=== PATIENT | female | born 2000 | race Caucasian/White ===

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

== ENCOUNTER 2018-01-02 11:39 | Emergency (ER) | payer BC ==
--- NOTE | 2018-01-02 12:26 | EDM.PDOC ---
ED HPI GENERAL MEDICAL PROBLEM - General Chief Complaint: Abdominal Pain Stated Complaint: ABDOMINAL PAIN,NAUSEA Time Seen by Provider: 01/02/18 12:26 Source of Information: Reports: Patient History Limitations: Reports: No Limitations - History of Present Illness INITIAL COMMENTS - FREE TEXT/NARRATIVE: Pt arrived with acute lower abdomanal pain. She has not had a high fever Onset: Gradual, Other (over the past 2 days. ) Duration: Hour(s): Location: Reports: Abdomen Associated Symptoms: Reports: No Other Symptoms, Nausea/Vomiting, Other (pt had an appendectomy early December. Her ovary was involved with the appendix. ) Middle Abdominal Pain Score (Numeric/FACES): 6 - Related Data Allergies Allergy/AdvReac Type Severity Reaction Status Date / Time No Known Allergies Allergy Verified 12/19/17 20:18 Home Meds: Home Meds Acetaminophen/HYDROcodone [[place] 325-5 MG] 1 - 2 tab PO Q4H PRN #30 tablet 12/21 [Rx] Past Medical History HEENT History: Reports: Impaired Vision Genitourinary History: Reports: UTI, Recurrent Other OB/BYN History: LMP november 24 - Infectious Disease History Infectious Disease History: Reports: Chicken Pox - Past Surgical History GI Surgical History: Reports: Appendectomy Social & Family History - Tobacco Use Smoking Status *Q: Never Smoker - Caffeine Use Caffeine Use: Reports: None - Recreational Drug Use Recreational Drug Use: No ED ROS GENERAL - Review of Systems Review Of Systems: See Below Constitutional: Reports: Weakness, Decreased Appetite, Other (pt has increased pain when she eats. ) HEENT: Reports: No Symptoms Respiratory: Reports: No Symptoms Cardiovascular: Reports: No Symptoms Endocrine: Reports: No Symptoms GI/Abdominal: Reports: Abdominal Pain, Nausea, Other (pt started to have increased abdomanal pain on he about the time she got. ) ED EXAM, GI/ABD - Physical Exam Exam: See Below Text/Narrative:: Pt arrived with a history of an appy 10 days ago. She was doing well until the and she developed alot more pain She has been having a stool daily wich is loose. She did get her period and she is bleeding very heavy. Her hcg is neg. . She is not vomiting but she can eat very little because the pain gets worse. Exam Limited By: No Limitations General Appearance: Alert, Anxious, Other (pupils equal and reactive. ) Ears: Normal TMs Nose: Normal Inspection Throat/Mouth: Normal Inspection Head: Atraumatic Neck: Normal Inspection Respiratory/Chest: No Respiratory Distress Cardiovascular: Regular Rate, Rhythm GI/Abdominal Exam: Guarding, Tender, Other (mildly distented. ) (Female) Exam: Deferred Rectal (Female) Exam: Deferred Back Exam: Normal Inspection Extremities: Normal Inspection Neurological: Alert, Oriented, Normal Cognition Psychiatric: Normal Affect Course - Vital Signs Last Recorded V/S: Last Vital Signs Temp 37.0 C 01/02/18 14:23 Pulse 85 01/02/18 14:23 Resp 16 01/02/18 14:23 BP 119/72 01/02/18 14:23 Pulse Ox 99 01/02/18 14:23 - Orders/Labs/Meds Orders: Active Orders 24 hr Category Date Time Status CLOSTRIDIUM DIFFICILE BY PCR [RM] Stat Lab 01/02/18 15:43 Ordered CULTURE URINE [] Stat Lab 01/02/18 14:00 Received HCG QUALITATIVE,URINE [URCHEM] Stat Lab 01/02/18 14:05 Ordered UA W/MICROSCOPIC [URIN] Urgent Lab 01/02/18 13:59 Ordered Iopamidol [Isovue-300 (61%)] Med 01/02/18 12:50 Active 85 ml IV . DIRECTED PRN Sodium Chloride 0.9% [Normal Saline] 1,000 ml Med 01/02/18 12:30 Active IV ASDIRECTED Sodium Chloride 0.9% [Normal Saline] 70 ml Med 01/02/18 13:00 Active IV ASDIRECTED Medication Orders Sodium Chloride (Normal Saline) 1,000 mls @ 999 mls/hr IV ASDIRECTED [facility] Last Admin: 01/02/18 12:55 Dose: 999 mls/hr Sodium Chloride (Normal Saline) 70 mls @ 3 mls/sec IV ASDIRECTED [facility] Last Admin: 01/02/18 13:19 Dose: 3 mls/sec Iopamidol (Isovue-300 (61%)) 85 ml IV . DIRECTED PRN PRN Reason: RADIOLOGY EXAM Stop: 01/03/18 12:51 Last Admin: 01/02/18 13:19 Dose: 85 ml Labs: Laboratory Tests 01/02/18 01/02/18 01/02/18 Range/Units 12:40 12:40 12:40 WBC 8.9 (4.5-11.0) K/uL RBC 4.28 (3.30-5.50) M/uL Hgb 12.6 (12.0-15.0) g/dL Hct 37.5 (36.0-48.0) % MCV 88 (80-98) fL MCH 29 (27-31) pg MCHC 34 (32-36) % Plt Count 245 (150-400) K/uL Neut % (Auto) 65 (36-66) % Lymph % (Auto) 16 L (24-44) % [place] % (Auto) 11 H (2-6) % Eos % (Auto) 8 H (2-4) % Baso % (Auto) 0 (0-1) % Sodium 141 (140-148) mmol/L Potassium 4.4 (3.6-5.2) mmol/L Chloride 104 (100-108) mmol/L Carbon Dioxide 28 (21-32) mmol/L Anion Gap 9.0 (5.0-14.0) mmol/L BUN 8 D (7-18) mg/dL Creatinine 0.7 (0.6-1.0) mg/dL Est Cr Clr Drug Dosing 106.93 mL/min Estimated GFR (MDRD) > 60 (>60) Glucose 93 (74-106) mg/dL Calcium 9.0 (8.5-10.1) mg/dL Total Bilirubin 0.5 (0.2-1.0) mg/dL AST 25 (15-37) U/L ALT 47 (12-78) U/L Alkaline Phosphatase 108 (46-116) U/L C-Reactive Protein 3.73 H (0.0-0.3) mg/dL Total Protein 7.3 (6.4-8.2) g/dL Albumin 3.4 (3.4-5.0) g/dL Globulin 3.9 H (2.3-3.5) g/dL Albumin/Globulin Ratio 0.9 L (1.2-2.2) Urine Color Urine Appearance Urine pH (4.5-8.0) Ur Specific [place] (1.008-1.030) Urine Protein (NEGATIVE) mg/dL Urine Glucose (UA) (NEGATIVE) mg/dL Urine Ketones (NEGATIVE) mg/dL Urine Occult Blood (NEGATIVE) Urine Nitrite (NEGATIVE) Urine Bilirubin (NEGATIVE) Urine Urobilinogen (NORMAL) mg/dL Ur Leukocyte Esterase (NEGATIVE) Urine RBC (0-5) Urine WBC (0-5) Ur Epithelial Cells Amorphous Sediment Urine Bacteria Urine Mucus Urine HCG, Qual 01/02/18 01/02/18 Range/Units 13:59 14:05 WBC (4.5-11.0) K/uL RBC (3.30-5.50) M/uL Hgb (12.0-15.0) g/dL Hct (36.0-48.0) % MCV (80-98) fL MCH (27-31) pg MCHC (32-36) % Plt Count (150-400) K/uL Neut % (Auto) (36-66) % Lymph % (Auto) (24-44) % [place] % (Auto) (2-6) % Eos % (Auto) (2-4) % Baso % (Auto) (0-1) % Sodium (140-148) mmol/L Potassium (3.6-5.2) mmol/L Chloride (100-108) mmol/L Carbon Dioxide (21-32) mmol/L Anion Gap (5.0-14.0) mmol/L BUN (7-18) mg/dL Creatinine (0.6-1.0) mg/dL Est Cr Clr Drug Dosing mL/min Estimated GFR (MDRD) (>60) Glucose (74-106) mg/dL Calcium (8.5-10.1) mg/dL Total Bilirubin (0.2-1.0) mg/dL AST (15-37) U/L ALT (12-78) U/L Alkaline Phosphatase (46-116) U/L C-Reactive Protein (0.0-0.3) mg/dL Total Protein (6.4-8.2) g/dL Albumin (3.4-5.0) g/dL Globulin (2.3-3.5) g/dL Albumin/Globulin Ratio (1.2-2.2) Urine Color Red Urine Appearance Cloudy Urine pH 5.0 (4.5-8.0) Ur Specific [place] 1.015 (1.008-1.030) Urine Protein 30 H (NEGATIVE) mg/dL Urine Glucose (UA) Normal (NEGATIVE) mg/dL Urine Ketones Negative (NEGATIVE) mg/dL Urine Occult Blood Large (NEGATIVE) Urine Nitrite Negative (NEGATIVE) Urine Bilirubin Negative (NEGATIVE) Urine Urobilinogen Normal (NORMAL) mg/dL Ur Leukocyte Esterase Small (NEGATIVE) Urine RBC Packed H (0-5) Urine WBC 10-20 H (0-5) Ur Epithelial Cells Few Amorphous Sediment Not seen Urine Bacteria Few Urine Mucus Not seen Urine HCG, Qual Negative Meds: Medications Generic Name Dose Route Start Last Admin Trade Name Amy PRN Reason Stop Dose Admin Sodium Chloride 1,000 mls @ 999 mls/hr 01/02/18 12:30 01/02/18 12:55 Normal Saline IV 999 mls/hr ASDIRECTED [facility] Administration Sodium Chloride 70 mls @ 3 mls/sec 01/02/18 13:00 01/02/18 13:19 Normal Saline IV 3 mls/sec ASDIRECTED [facility] Administration Iopamidol 85 ml 01/02/18 12:50 01/02/18 13:19 Isovue-300 (61%) IV 01/03/18 12:51 85 ml . DIRECTED PRN Administration RADIOLOGY EXAM Discontinued Medications Generic Name Dose Route Start Last Admin Trade Name Amy PRN Reason Stop Dose Admin Hydromorphone HCl 0.5 mg 01/02/18 12:30 01/02/18 12:55 Dilaudid IVPUSH 01/02/18 12:31 0.5 mg ONETIME ONE Administration Magnesium Citrate 296 ml 01/02/18 13:55 01/02/18 14:06 Citrate Of Magnesia PO 01/02/18 13:56 296 ml ONETIME ONE Administration Ondansetron HCl 4 mg 01/02/18 12:30 01/02/18 12:55 Zofran IVPUSH 01/02/18 12:31 4 mg ONETIME ONE Administration Oxycodone/Acetaminophen 1 tab 01/02/18 14:13 01/02/18 14:32 Percocet 325-5 Mg PO 01/02/18 14:14 1 tab ONETIME ONE Administration Sodium Chloride 10 ml 01/02/18 12:50 01/02/18 14:33 Normal Saline FLUSH 01/02/18 12:51 10 ml ONETIME ONE Administration - Re-Assessments/Exams Free Text/Narrative Re-Assessment/Exam: 01/02/18 15:44 cat scan showed a fair amount of stool, no acute findings. Rt ovary was generous but no large cyst. 01/02/18 16:18 Dr England did consult on the pt Departure - Departure Time of Disposition: 16:18 Disposition: Home, Self-Care 01 Condition: Fair Clinical Impression: Abdominal pain, Hx of appendectomy, Heavy menstrual period - Discharge Information Referrals: Emma Damon CNM [Primary Care Provider] - Forms: ED Department Discharge Care Plan Goals: push fluids, pepcid 20mg daily for 10 days, send a sterile cup home with the pt to bring a stool back for clost diff, keep appt with Dr England on Sunday. Motrin 600mg tid, norco 5/325 q6h prn for pain # 10 - My Orders Last 24 Hours: My Active Orders 01/02/18 12:30 Sodium Chloride 0.9% [Normal Saline] 1,000 ml IV ASDIRECTED 01/02/18 12:50 Iopamidol [Isovue-300 (61%)] 85 ml IV . DIRECTED PRN 01/02/18 13:00 Sodium Chloride 0.9% [Normal Saline] 70 ml IV ASDIRECTED 01/02/18 13:59 UA W/MICROSCOPIC [URIN] Urgent 01/02/18 14:00 CULTURE URINE [RM] Stat 01/02/18 14:05 HCG QUALITATIVE,URINE [URCHEM] Stat 01/02/18 15:43 CLOSTRIDIUM DIFFICILE BY PCR [] Stat - Assessment/Plan Last 24 Hours: My Active Orders 01/02/18 12:30 Sodium Chloride 0.9% [Normal Saline] 1,000 ml IV ASDIRECTED 01/02/18 12:50 Iopamidol [Isovue-300 (61%)] 85 ml IV . DIRECTED PRN 01/02/18 13:00 Sodium Chloride 0.9% [Normal Saline] 70 ml IV ASDIRECTED 01/02/18 13:59 UA W/MICROSCOPIC [URIN] Urgent 01/02/18 14:00 CULTURE URINE [RM] Stat 01/02/18 14:05 HCG QUALITATIVE,URINE [URCHEM] Stat 01/02/18 15:43 CLOSTRIDIUM DIFFICILE BY PCR [] Stat
[2018-01-02] MEDS ORDERED: HYDROmorphone 0.5 MG/0.5 ML Syringe IVPUSH ONE (12:30)
[2018-01-02] MEDS ORDERED: Sodium Chloride 0.9% 1,000 ML IV SCH (12:30)
[2018-01-02] MEDS ORDERED: Ondansetron 4 MG/2 ML SDV IVPUSH ONE (12:30)
[2018-01-02] MEDS ORDERED: Iopamidol 612 MG/ML 100 ML Bottle IV PRN (12:50)
[2018-01-02] MEDS ORDERED: Sodium Chloride 0.9% 10 ML SDV FLUSH ONE (12:50)
--- NOTE | 2018-01-02 13:39 | CT ---
Abdomen pelvis CT. History: Acute abdominal pain. Technique: IV contrast was administered followed by axial imaging from the lung bases extending thro ugh the abdomen and pelvis. Coronal images were reconstructed. Total DLP: 372. Comparison: 2 weeks prior Findings: Since the prior study the patient has had a appendectomy. There are surgical clips at the b ase of the cecum. There is no evidence for abscess. There is no free air or free fluid. There is no l arge or small bowel distention. There is moderate stool retention within the colon. There is no wall thickening or inflammation. The ovaries and adnexal structures are unremarkable. A 1.6 cm follicle of the right ovary on the prior study has resolved. Limited evaluation of lower lung patrick demonstrates no abnormalities. The gallbladder, pancreas, and spleen are stable. The kidneys demonstrate symmetric excretion of contrast. The skeletal structures are unremarkable. Impression: 1. Interval appendectomy. There are no postoperative complications. There is no evidence of abscess. 2. There are no acute findings of the abdomen or pelvis. 3. Moderate stool retention within the colon.
[2018-01-02] MEDS ORDERED: Magnesium Citrate Solution 296 ML Bottle PO ONE (13:55)
[2018-01-02] MEDS ORDERED: Acetaminophen/oxyCODONE 325-5 MG Tab PO ONE (14:13)
--- NOTE | 2018-01-02 16:07 | PCM.CONS ---
H&P History of Present Illness - General Date of Service: 01/02/18 Admit Problem/Dx: Abdominal pain Source of Information: Patient, Old Records, Provider History Limitations: Reports: No Limitations - History of Present Illness Initial Comments - Free Text/Narative: This 17 year old white female is s/p a laparoscopic appendectomy on December 19, 2017 for pathologically confirmed early acute appendicitis. It appeared that she had a resolving right ovarian cyst also. There was no evidence of a Meckel's diverticulum. She was a little slow recovering from surgery, but went home eating well. She started her period on December 30, 2017 and at about the same time noted onset of abdominal pain. The pain seems worse with eating and BM's. It became bad enough that she presented to the ER today. She has felt hot, but no chills. She for years has had abdominal pain with her periods. Years ago she says her mother thought she had endometriosis. We did not note any evidence of that at the time of surgery, but endometriosis can be subtle. Onset of Symptoms: Reports: Other (december 30, 2017--similar to the past but worse now.) Duration of Symptoms: Reports: Day(s): Location: Reports: Abdomen Middle Abdominal Pain Score (Numeric/FACES): 6 - Related Data Allergies/Adverse Reactions: Allergies Allergy/AdvReac Type Severity Reaction Status Date / Time No Known Allergies Allergy Verified 12/19/17 20:18 Home Medications: Home Meds Acetaminophen/HYDROcodone [[place] 325-5 MG] 1 - 2 tab PO Q4H PRN #30 tablet 12/21 [Rx] Past Medical History HEENT History: Reports: Impaired Vision Genitourinary History: Reports: UTI, Recurrent Other OB/BYN History: LMP november 24 - Infectious Disease History Infectious Disease History: Reports: Chicken Pox - Past Surgical History GI Surgical History: Reports: Appendectomy Social & Family History - Tobacco Use Smoking Status *Q: Never Smoker - Caffeine Use Caffeine Use: Reports: None - Recreational Drug Use Recreational Drug Use: No H&P Review of Systems - Review of Systems: Review Of Systems: See Below General: Reports: No Symptoms, Other (Abdominal pain.) HEENT: Reports: No Symptoms Pulmonary: Reports: No Symptoms Cardiovascular: Reports: No Symptoms Gastrointestinal: Reports: Abdominal Pain Genitourinary: Reports: Other (Having her period. ) Musculoskeletal: Reports: No Symptoms Psychiatric: Reports: No Symptoms Neurological: Reports: No Symptoms Hematologic/Lymphatic: Reports: No Symptoms Immunologic: Reports: No Symptoms Exam - Exam Exam: See Below - Vital Signs Vital Signs: Last Vital Signs Temp 98.6 F 01/02/18 14:23 Pulse 85 01/02/18 14:23 Resp 16 01/02/18 14:23 BP 119/72 01/02/18 14:23 Pulse Ox 99 01/02/18 14:23 Weight: 124 lb 5.451 oz - Exam General: Alert, Oriented, Cooperative, Other (Smiling and looks well. ) Lungs: Clear to Auscultation, Normal Respiratory Effort Cardiovascular: Regular Rate, Regular Rhythm GI/Abdominal Exam: Normal Bowel Sounds, Tender (Diffusely tender with some peritoneal irritation signs. ) Back Exam: Normal Inspection, Full Range of Motion Extremities: Normal Inspection Skin: Warm, Dry, Intact Neuro Extensive - Mental Status: Alert, Oriented x3, Normal Mood/Affect, Normal Cognition Psychiatric: Alert, Normal Affect, Normal Mood - Patient Data Lab Results Last 24 hrs: Laboratory Results - last 24 hr 01/02/18 01/02/18 01/02/18 Range/Units 12:40 12:40 12:40 WBC 8.9 (4.5-11.0) K/uL RBC 4.28 (3.30-5.50) M/uL Hgb 12.6 (12.0-15.0) g/dL Hct 37.5 (36.0-48.0) % MCV 88 (80-98) fL MCH 29 (27-31) pg MCHC 34 (32-36) % Plt Count 245 (150-400) K/uL Neut % (Auto) 65 (36-66) % Lymph % (Auto) 16 L (24-44) % [place] % (Auto) 11 H (2-6) % Eos % (Auto) 8 H (2-4) % Baso % (Auto) 0 (0-1) % Sodium 141 (140-148) mmol/L Potassium 4.4 (3.6-5.2) mmol/L Chloride 104 (100-108) mmol/L Carbon Dioxide 28 (21-32) mmol/L Anion Gap 9.0 (5.0-14.0) mmol/L BUN 8 D (7-18) mg/dL Creatinine 0.7 (0.6-1.0) mg/dL Est Cr Clr Drug Dosing 106.93 mL/min Estimated GFR (MDRD) > 60 (>60) Glucose 93 (74-106) mg/dL Calcium 9.0 (8.5-10.1) mg/dL Total Bilirubin 0.5 (0.2-1.0) mg/dL AST 25 (15-37) U/L ALT 47 (12-78) U/L Alkaline Phosphatase 108 (46-116) U/L C-Reactive Protein 3.73 H (0.0-0.3) mg/dL Total Protein 7.3 (6.4-8.2) g/dL Albumin 3.4 (3.4-5.0) g/dL Globulin 3.9 H (2.3-3.5) g/dL Albumin/Globulin Ratio 0.9 L (1.2-2.2) Urine Color Urine Appearance Urine pH (4.5-8.0) Ur Specific [place] (1.008-1.030) Urine Protein (NEGATIVE) mg/dL Urine Glucose (UA) (NEGATIVE) mg/dL Urine Ketones (NEGATIVE) mg/dL Urine Occult Blood (NEGATIVE) Urine Nitrite (NEGATIVE) Urine Bilirubin (NEGATIVE) Urine Urobilinogen (NORMAL) mg/dL Ur Leukocyte Esterase (NEGATIVE) Urine RBC (0-5) Urine WBC (0-5) Ur Epithelial Cells Amorphous Sediment Urine Bacteria Urine Mucus Urine HCG, Qual 01/02/18 01/02/18 Range/Units 13:59 14:05 WBC (4.5-11.0) K/uL RBC (3.30-5.50) M/uL Hgb (12.0-15.0) g/dL Hct (36.0-48.0) % MCV (80-98) fL MCH (27-31) pg MCHC (32-36) % Plt Count (150-400) K/uL Neut % (Auto) (36-66) % Lymph % (Auto) (24-44) % [place] % (Auto) (2-6) % Eos % (Auto) (2-4) % Baso % (Auto) (0-1) % Sodium (140-148) mmol/L Potassium (3.6-5.2) mmol/L Chloride (100-108) mmol/L Carbon Dioxide (21-32) mmol/L Anion Gap (5.0-14.0) mmol/L BUN (7-18) mg/dL Creatinine (0.6-1.0) mg/dL Est Cr Clr Drug Dosing mL/min Estimated GFR (MDRD) (>60) Glucose (74-106) mg/dL Calcium (8.5-10.1) mg/dL Total Bilirubin (0.2-1.0) mg/dL AST (15-37) U/L ALT (12-78) U/L Alkaline Phosphatase (46-116) U/L C-Reactive Protein (0.0-0.3) mg/dL Total Protein (6.4-8.2) g/dL Albumin (3.4-5.0) g/dL Globulin (2.3-3.5) g/dL Albumin/Globulin Ratio (1.2-2.2) Urine Color Red Urine Appearance Cloudy Urine pH 5.0 (4.5-8.0) Ur Specific [place] 1.015 (1.008-1.030) Urine Protein 30 H (NEGATIVE) mg/dL Urine Glucose (UA) Normal (NEGATIVE) mg/dL Urine Ketones Negative (NEGATIVE) mg/dL Urine Occult Blood Large (NEGATIVE) Urine Nitrite Negative (NEGATIVE) Urine Bilirubin Negative (NEGATIVE) Urine Urobilinogen Normal (NORMAL) mg/dL Ur Leukocyte Esterase Small (NEGATIVE) Urine RBC Packed H (0-5) Urine WBC 10-20 H (0-5) Ur Epithelial Cells Few Amorphous Sediment Not seen Urine Bacteria Few Urine Mucus Not seen Urine HCG, Qual Negative Result Diagrams: 01/02/18 12:40 01/02/18 12:40 Consult PN Assessment/Plan Procedures: Procedures HOT OR COLD PACKS THERAPY (08/10/14) ORTHOTIC MGMT&TRAINJ 1ST ENC (08/10/14) OT EVALUATION (08/10/14) THERAPEUTIC EXERCISES (08/10/14) ULTRASOUND THERAPY (08/10/14) US EXAM PELVIC COMPLETE (10/01/14) (1) Abdominal pain SNOMED Code(s): 01146724 Code(s): R10.9 - UNSPECIFIED ABDOMINAL PAIN Current Visit: Yes Qualifiers: Abdominal location: lower abdomen, unspecified Qualified Code(s): R10.30 - Lower abdominal pain, unspecified Assessment:: WBC is unremarkable. CT scan of her abdomen and pelvis is unremarkable. She does not appear to have a surgical abdomen. He incisions appear well with no evidence of infection. Problem List Initiated/Reviewed/Updated: Yes Plan: Ibuprofen. Check for C. difficile which has already started. See me in clinic in two days or earlier PRN.
== END 2018-01-02 16:40 | disposition home or self-care (01) ==
LOC: JP.ED 11:39
DX: N92.0 Excessive and frequent menstruation with regular cycle (principal); Z90.89 Acquired absence of other organs
CPT/HCPCS: 36415; 74177; 80053; 81001; 81025; 85025; 86140; 87086; 96361; 96374; 96375; 99284; A9270; J1170; J2405; J7030; J7040; J7050; Q9967

== ENCOUNTER 2018-09-08 13:38 | Emergency (ER) | payer BC ==
--- NOTE | 2018-09-08 14:29 | EDM.PDOC ---
ED HPI GENERAL MEDICAL PROBLEM - General Chief Complaint: ENT Problem Stated Complaint: SORE THROAT Time Seen by Provider: 09/08/18 14:05 Source of Information: Reports: Patient History Limitations: Reports: No Limitations - History of Present Illness INITIAL COMMENTS - FREE TEXT/NARRATIVE: 17-year-old female with cold symptoms for the past 3 days, worsening sore throat , had 2 episodes of epistaxis today which scared her so she came in to be checked out. No nausea or vomiting. No significant shortness of breath and only a slight cough. Onset: Gradual Duration: Day(s): (2-3 days) - Related Data Allergies Allergy/AdvReac Type Severity Reaction Status Date / Time No Known Allergies Allergy Verified 09/08/18 13:54 Home Meds: Home Meds lamoTRIgine [Lamotrigine] 09/08/18 [History] Past Medical History HEENT History: Reports: Impaired Vision Genitourinary History: Reports: UTI, Recurrent Other [employer] History: LMP november 24 - Infectious Disease History Infectious Disease History: Reports: Chicken Pox - Past Surgical History GI Surgical History: Reports: Appendectomy Social & Family History - Tobacco Use Smoking Status *Q: Current Every Day Smoker Years of Tobacco use: 2 Packs/Tins Daily: 0.1 - Caffeine Use Caffeine Use: Reports: None ED ROS ENT - Review of Systems Review Of Systems: See Below Constitutional: Denies: Fever HEENT: Reports: Nosebleed, Throat Pain. Denies: Ear Pain Respiratory: Reports: Cough. Denies: Shortness of Breath Cardiovascular: Denies: Chest Pain GI/Abdominal: Denies: Abdominal Pain, Nausea, Vomiting : Reports: No Symptoms Skin: Reports: No Symptoms. Denies: Rash Neurological: Reports: No Symptoms. Denies: Headache ED EXAM, ENT - Physical Exam Exam: See Below Exam Limited By: No Limitations General Appearance: Alert, No Apparent Distress Eye Exam: Bilateral Eye: Normal Inspection Ears: Normal TMs Nose: Normal Inspection Mouth/Throat: Normal Inspection Head: Atraumatic Neck: No: Lymphadenopathy (R), Lymphadenopathy (L) Respiratory/Chest: Lungs Clear Course - Vital Signs Last Recorded V/S: Last Vital Signs Temp 99.5 F 09/08/18 14:00 Pulse 115 H 09/08/18 14:00 Resp 16 09/08/18 14:00 BP 126/78 09/08/18 14:00 Pulse Ox 99 09/08/18 14:00 - Orders/Labs/Meds Orders: Active Orders 24 hr Category Date Time Status CULTURE STREP A CONFIRMATION [RM] Routine Lab 09/08/18 14:16 Results STREP SCRN A RAPID W CULT CONF [RM] Routine Lab 09/08/18 14:16 Results - Re-Assessments/Exams Free Text/Narrative Re-Assessment/Exam: 09/08/18 14:29 Rapid strep was obtained. 09/08/18 14:34 Strep is negative. Patient was given a prescription for viscous lidocaine to use as needed for throat pain and can return if worsening. Ibuprofen and fluids will help as well. Departure - Departure Time of Disposition: 15:04 Disposition: Home, Self-Care 01 Condition: Good Clinical Impression: Viral URI - Discharge Information Instructions: Upper Respiratory Infection, Adult, [id number] Referrals: Emma Damon CNM [Primary Care Provider] - Forms: ED Department Discharge Care Plan Goals: Use ibuprofen or naproxen along with viscous lidocaine as prescribed for throat pain, and increase diet and activity as tolerated. Consider rechecking in 2-3 days if not improving satisfactorily. - My Orders Last 24 Hours: My Active Orders 09/08/18 14:16 CULTURE STREP A CONFIRMATION [RM] Routine STREP SCRN A RAPID W CULT CONF [RM] Routine - Assessment/Plan Last 24 Hours: My Active Orders 09/08/18 14:16 CULTURE STREP A CONFIRMATION [RM] Routine STREP SCRN A RAPID W CULT CONF [RM] Routine
== END 2018-09-08 15:04 | disposition home or self-care (01) ==
LOC: JP.ED 13:38
DX: J06.9 Acute upper respiratory infection, unspecified (principal); F17.210 Nicotine dependence, cigarettes, uncomplicated; Z87.440 Personal history of urinary (tract) infections; Z90.89 Acquired absence of other organs
CPT/HCPCS: 87081; 87430; 99283